=== PATIENT | female | born 1985 | race Caucasian/White ===

== ENCOUNTER 2023-01-15 14:15 | Emergency (ER) | payer OTHER, SELFPAY ==
[2023-01-15 14:32] VITALS: BP 135/68; PULSE 101; RESP 18; TEMP 37.7; O2SAT 98
--- NOTE | 2023-01-15 14:39 | ED.URI ---
HPI - URI/Sore Throat General Chief Complaint: Upper Respiratory Infection Stated Complaint: strep exposure, throat sore Time Seen by Provider: 01/15/23 14:48 Source: patient and RN notes reviewed Mode of arrival: ambulatory Limitations: no limitations History of Present Illness HPI Narrative: 29-year-old female presents concern for sore throat, nasal congestion, fever, watery eyes, cough, body aches. Reports exposure to strep. Reports her symptoms started yesterday MD elicited complaint: sore throat Related Data Home Medications Medication Instructions Recorded Confirmed levonorgestrel 21 mcg/24 hours (8 1 device intrauterine ONCE 01/15/23 01/15/23 yrs) 52 mg intrauterine device (Mirena) Allergies Allergy/AdvReac Type Severity Reaction Status Date / Time No Known Allergies Verified 01/15/23 14:36 Review of Systems Review of Systems: CONSTITUTIONAL: Reports malaise, chills, sweats, or fever. EYES: Denies visual changes, redness, or discharge. ENT: Reports rhinorrhea, congestion, and sore throat. CARDIOVASCULAR: Denies chest pain, palpitations, or edema. RESPIRATORY: Reports cough. Denies dyspnea. GASTROINTESTINAL: Denies abdominal pain, nausea, vomiting, diarrhea SKIN: Denies rash or itching. MUSCULOSKELETAL: Reports myalgia. NEUROLOGIC: Denies headache. All systems reviewed & are unremarkable except as noted in HPI and below PMFSH Comments At time of signature, agree with nursing past medical, surgical, social and family history. There is no relevant family history pertinent to the presenting complaint Exam Narrative: GENERAL: Well-appearing, well-nourished, and in no acute distress. HEAD: Normocephalic EYES: PERRLA, conjunctivae clear ENT: Nares clear, turbinates edematous and erythematous, clear discharge. Mucous membranes moist. TM pearly yañez with dull light reflex bilaterally; no tragal tenderness. Oropharynx erythematous without lesions. Tonsils not enlarged and without exudate, no drooling, no hoarseness, no trismus, uvula midline. NECK: Supple. No lymphadenopathy CHEST: Clear to auscultation, breath sounds equal. No wheezing, rhonchi, rales, or stridor. No respiratory distress, speaks in full sentences. HEART: Regular rate and rhythm. No murmur heard. SKIN: Warm, dry, no rash. NEURO: Alert and oriented x3. PSYCH: Normal mood and affect Course Course Emergency Course: Patient is aware of diagnosis, understands and agrees to treatment plan. Anticipatory guidance given. Patient agrees to follow-up as directed and is aware of reasons to seek care at the emergency department. Portions of this record may have been created with voice recognition software Level of Care: Express Care Visit Vital Signs Vital signs: Vital Signs Temperature 99.9 F H 01/15/23 14:32 Pulse Rate 101 H 01/15/23 14:32 Respiratory Rate 18 01/15/23 14:32 Blood Pressure 135/68 01/15/23 14:32 Pulse Oximetry 98 01/15/23 14:32 Oxygen Delivery Room Air 01/15/23 14:32 Temperature 99.9 F H 01/15/23 14:32 Pulse Rate 101 H 01/15/23 14:32 Respiratory Rate 18 01/15/23 14:32 Blood Pressure 135/68 01/15/23 14:32 Pulse Oximetry 98 01/15/23 14:32 Oxygen Delivery Room Air 01/15/23 14:32 Reviewed. MDM - URI/Sore Throat MDM Narrative Medical decision making narrative: Differential diagnosis considered: Christensen virus, strep pharyngitis, allergic rhinitis, upper respiratory tract infection, sinusitis, rhinosinusitis, nasopharyngitis. viral pharyngitis, otitis media, otitis externa, pneumonia, bronchitis, viral cough syndrome, viral syndrome, and influenza. Exam findings show no acute concerns or changes; patient is non-toxic appearing and is in no distress. Patient is appropriate for outpatient treatment and follow-up. Lab Data Attestation: I reviewed the patient's lab results. Critical Care Time Critical Care Time Critical Care Time: No Discharge Plan Discharge Clinical Impr
== END 2023-01-15 15:04 | disposition home or self-care (01) ==
PROVIDERS: Emergency Provider Nurse Practitioner
DX: J02.0 Streptococcal pharyngitis (principal)
CPT/HCPCS: 87880; 99213; G0463

== ENCOUNTER 2024-03-30 14:39 | Emergency (ER) | payer OTHER, SELFPAY ==
[2024-03-30 14:50] VITALS: BP 133/65; PULSE 99; RESP 16; TEMP 37.7; O2SAT 100
--- NOTE | 2024-03-30 16:03 | ED_ITS ---
HPI - URI/Sore Throat General Chief Complaint: Upper Respiratory Infection Stated Complaint: Cough/Sinus Time Seen by Provider: 03/30/24 16:03 Source: patient, RN notes reviewed and old records reviewed Mode of arrival: ambulatory Limitations: no limitations History of Present Illness HPI Narrative: 39-year-old female presents to the [facility] with sinus cough, congestion, runny nose since Saturday. Denies symptoms. Denies any treatments Related Data Home Medications ?Medication ?Instructions ?Recorded ?Confirmed ?Last Taken ?Type levonorgestrel (Mirena) 1 device intrauterine ONCE 01/15/23 01/15/23 Unknown History Allergies Allergy/AdvReac Type Severity Reaction Status Date / Time No Known Allergies Verified 01/15/23 14:36 Review of Systems Review of Systems: All systems reviewed & are unremarkable except as noted in HPI and below Constitutional: Constitutional: Reports no additional constitutional complaints ENT: Reports as per HPI Cardiovascular: Cardiovascular: Reports no additional cardiovascular complaints, Denies chest pain and Denies dyspnea Respiratory: Respiratory: Reports as per HPI, Denies chest congestion, Reports cough and Denies dyspnea Musculoskeletal: Musculoskeletal: Reports no additional musculoskeletal complaints Integumentary/Breasts: Skin/Breast: Reports system reviewed and no additional complaints, except as docu PMFSH Comments At the time of my signature, I reviewed and agree with the nursing past medical, surgical, social, and family history. There is no relevant family history pertinent to the patient complaint. Exam Const: General: cooperative, no acute distress, well developed, alert, tired appearing, uncomfortable and well nourished Nutritional Appearance: well nourished Orientation/consciousness: patient oriented x3 Limitations: no limitations HENMT: Head: normal to inspection Ears: hearing grossly normal bilaterally, external ears normal, TM's normal bilaterally, EAC's normal, mastoids normal and no periauricular adenopathy Mouth: Yes Normal oral and palatal mucosa present, Yes lip normal, Yes tongue normal and Yes moist mucous membranes Throat: posterior oropharynx normal, uvula midline and no uvular edema Eyes: General: appearance normal, both eyes and all related structures Alignment and Position: alignment normal Neck: Neck: normal visual inspection, full ROM, no lymphadenopathy and no meningeal signs Chest: Chest palpation & inspection: normal inspection of the chest Resp: Effort & Inspection: normal respiratory effort and able to speak in complete sentences Auscultation: clear to auscultation bilaterally, no crackles, no rales, no rhonchi and no wheezes Cardio: Rate: regular rate Skin: General skin exam: normal color and no rashes or lesions noted Neuro: General: patient oriented x3, gait normal, moves all extremities and no meningeal signs Cognition (Neuro): normal cognition Speech: normal speech Gait exam (Neuro): Normal gait present Extrem: General: normal to inspection, full ROM, capillary refill normal and normal gait Psych: Appearance: grossly normal and well kempt Mental Status: mental status grossly normal Speech and movement: Normal speech and movement present and Clear speech present Affect: normal affect Attitude: cooperative Course Course Level of Care: Express Care Visit Vital Signs Vital signs: Vital Signs Temperature 99.9 F H 03/30/24 14:50 Pulse Rate 99 03/30/24 14:50 Respiratory Rate 16 03/30/24 14:50 Blood Pressure 133/65 03/30/24 14:50 Pulse Oximetry 100 03/30/24 14:50 Oxygen Delivery Room Air 03/30/24 14:50 Temperature 99.9 F H 03/30/24 14:50 Pulse Rate 99 03/30/24 14:50 Respiratory Rate 16 03/30/24 14:50 Blood Pressure 133/65 03/30/24 14:50 Pulse Oximetry 100 03/30/24 14:50 Oxygen Delivery Room Air 03/30/24 14:50 Reviewed MDM - URI/Sore Throat MDM Narrative Medical decision making narrative: Patient sitting in exam room. Nontoxic vitals stable. Patient of distress. Patient presents with 3 day history of URI symptoms. Patient is flu A positive. Patient is appropriate for outpatient treatment with close follow-up Discharge instructions reviewed with patient, as well as provided in writing per nursing staff. The instructions also include specific and strict return/GO TO THE ER as well as f/u information. All questions have been answered, and the patient deny any further questions with discharge and discharge plan. Some parts of this dictation were generated by voice recognition software and may contain typographical and/or grammatical inaccuracies. Differential Diagnosis Differential diagnosis: Likely upper respiratory infection, otitis media, sinusitis, viral infection, bronchitis and influenza Lab Data Labs: Lab Results 03/30/24 Range/Units 16:15 POC Influenza A Ag Positive (Negative) POC Influenza B Ag Negative (Negative) POC SARS CoV-2 Ag Negative (Negative) Reviewed Critical Care Time Critical Care Time Critical Care Time: No Discharge Plan Discharge Clinical Impression: Influenza A Patient Disposition: Home, Self-Care Condition: Stable Instructions: Antibiotic Form, Influenza (ED) Additional Instructions: Your rapid COVID test were negative Your rapid flu test was positive for influenza A Your symptoms are due to a viral illness, which is not treated with antibiotics. Typically viral infections last 7-10 days, can linger for couple of weeks. It is very important to treat your symptoms. Drink plenty of water, Gatorade, Pedialyte, ice pops or Jell-O. -Alternate Tylenol and Motrin per package directions for fever or pain. You can alternate every 4 hours -Antihistamine medication such as Zyrtec/Claritin/Aster during the day can help improve symptoms. -doing daily nasal irrigations can help relieve pressure your sinuses. Things like a Neti pot -Use Flonase twice a day for 5 days then daily to help reduce the inflammation and dry up your sinuses. -You can also use Mucinex. Be sure to drink plenty of water with this medication at least 8 ounces with every dose and it is important to drink 8 to 10 glasses of water per day. Water is a natural decongestant -Eat and drink things that are easy to swallow, like tea or soup, or popsicles. -Oral rinses such as: Salt water gargles and/or may use topical anesthetic (eg. Chloraseptic spray) or lozenges to relieve dryness or throat pain). -Frequent hand washing or hand loader operator is one of the best ways to prevent spread of infection. -Using a vaporizer or humidifier at night will also help thin secretions and help with coughing up phlegm. -Follow up with primary care provider in 7-10 days if condition is not improving - For new or worsening symptoms go directly to the nearest ER Patient Language: Cuban Prescriptions: No Action Mirena 21 mcg/24 hours (8 yrs) 52 mg Intrauterine Device 1 device INTRAUTERINE ONCE Rx Instructions: as a single dose penicillin V potassium 500 mg tablet 500 mg PO Q12H 10 Days Qty: 20 0RF Follow-up/Referrals: PHYSICIAN,USER EXPERIENCE ANALYST [Primary Care Provider] - Stand Alone Forms: Work/School Release IP Time of Disposition: 16:07
[2024-03-30 16:16] LABS: EDINFLUASCREEN Positive (Negative); EDINFLUBSCREEN Negative (Negative)
[2024-03-30 16:21] LABS: EDCOVIDSCREEN Negative (Negative)
== END 2024-03-30 16:24 | disposition home or self-care (01) ==
PROVIDERS: Emergency Provider Nurse Practitioner
DX: J10.1 Influenza due to other identified influenza virus with other respiratory manifestations (principal); Z20.822 Contact with and (suspected) exposure to COVID-19
CPT/HCPCS: 87426; 87804; 99212; G0463

== ENCOUNTER 2024-09-10 14:38 | Emergency (ER) | payer OTHER, SELFPAY ==
--- NOTE | ~2024-09-10 | US_ITS ---
EXAMINATION: US venous doppler [facility] DATE: 09/10/2024 16:12 INDICATION: Swelling TECHNIQUE: Grayscale ultrasound images without and with compression and Doppler ultrasound images of the left lower extremity veins were obtained. COMPARISON: None. FINDINGS: The visualized portions of left common femoral vein, profunda (deep) femoral vein, femoral vein, popl iteal vein, peroneal veins, posterior tibial veins, and greater saphenous vein outflow are patent. IMPRESSION: 1. No deep venous thrombosis within the left lower extremity, as detailed above. Reviewed, dictated and finalized at location A. IMPRESSION: 1. No deep venous thrombosis within the left lower extremity, as detailed delilah erazo
[2024-09-10 14:46] VITALS: BP 152/91; PULSE 106; RESP 20; TEMP 36.6; O2SAT 99
--- NOTE | 2024-09-10 15:33 | ED_ITS ---
HPI - Extremity Injury (Lower) General Chief Complaint: Extremity Injury, Lower <Tami Hodges PA-C - Last Filed: 09/10/24 18:55> Stated Complaint: Left lower leg warm-poss DVT <Tami Hodges PA-C - Last Filed: 09/10/24 18:55> Time Seen by Provider: 09/10/24 15:33 <Tami Hodges PA-C - Last Filed: 09/10/24 18:55> Focused HPI: This is a 39 year old female that presents to the ER for an US to r/o DVT. Reports driving home from [place] last Saturday. Reports left leg pain, swelling. She had a telehealth visit and was told to come to the ER to r/o DVT. No history of DVT. She is a smoker. GENERAL: Well-appearing, well-nourished, and in no acute distress. HEAD: Normocephalic, atraumatic. CHEST: Clear to auscultation. ?No respiratory distress. HEART: Regular rate and rhythm.? NEURO: ?Alert and oriented x3. Patient screened in triage and initial orders placed.? ?Additional care and disposition to be based upon?diagnostic testing and treatment. <Tami Hodges PA-C - Last Filed: 09/10/24 18:55> History of Present Illness HPI Narrative: Agree with the above HPI. Patient states she drove 18 hours from [place] on Saturday and that they noticed a bruise to the back of her left calf and some swelling to the ankle. She had a telehealth appointment today was advised to come to the ER for ultrasound to rule out a DVT. She denies known injury or trauma but does states she has an autistic son who may have caused a bruise. No history of DVT. States the swelling has resolved. <Stacy Rosales PA-C - Last Filed: 09/10/24 18:21> Related Data Home Medications: Home Medications ?Medication ?Instructions ?Recorded ?Confirmed ?Last Taken ?Type levonorgestrel (Mirena) 1 device intrauterine ONCE 01/15/23 01/15/23 Unknown History <Tami Hodges PA-C - Last Filed: 09/10/24 18:55> Allergies/Adverse Reactions: Allergies Allergy/AdvReac Type Severity Reaction Status Date / Time No Known Allergies Allergy Verified 09/10/24 14:41 <Tami Hodges PA-C - Last Filed: 09/10/24 18:55> Review of Systems Review of Systems: All systems reviewed & are unremarkable except as noted in HPI and below <Stacy Rosales PA-C - Last Filed: 09/10/24 18:21> Exam Narrative: GENERAL: Well-appearing, well-nourished, and in no acute distress. HEAD: Normocephalic, atraumatic. EYES: EOMI. ENT: Nares clear, no rhinorrhea or epistaxis. Mucous membranes moist. NECK: Supple. CHEST: Clear to auscultation. No respiratory distress. HEART: Regular rate and rhythm. No murmur heard. Normal peripheral pulses. EXTREMITIES: Small bruise the back of the left calf with minimal tenderness, no edema to the lower extremity, negative Homans. Extremities pink, warm and dry. DP pulses 2+. SKIN: Warm, dry, no rash. NEURO: No focal deficits. Alert and oriented x3 <JAVIER Connors Last Filed: 09/10/24 18:21> Course Vital Signs Vital signs: Vital Signs Temperature 98 F 09/10/24 14:46 Pulse Rate 106 H 09/10/24 14:46 Respiratory Rate 09/10/24 14:46 Blood Pressure 152/91 H 09/10/24 14:46 Pulse Oximetry 99 09/10/24 14:46 Oxygen Delivery Room Air 09/10/24 14:46 Temperature 98 F 09/10/24 14:46 Pulse Rate 81 09/10/24 17:58 Respiratory Rate 09/10/24 17:58 Blood Pressure 137/86 09/10/24 17:58 Pulse Oximetry 99 09/10/24 17:58 Oxygen Delivery Room Air 09/10/24 14:46 <Tami Hodges PA-C - Last Filed: 09/10/24 18:55> Vital Signs Temperature 98 F 09/10/24 14:46 Pulse Rate 106 H 09/10/24 14:46 Respiratory Rate 20 09/10/24 14:46 Blood Pressure 152/91 H 09/10/24 14:46 Pulse Oximetry 99 09/10/24 14:46 Oxygen Delivery Room Air 09/10/24 14:46 Temperature 98 F 09/10/24 14:46 Pulse Rate 81 09/10/24 17:58 Respiratory Rate 20 09/10/24 17:58 Blood Pressure 137/86 09/10/24 17:58 Pulse Oximetry 99 09/10/24 17:58 Oxygen Delivery Room Air 09/10/24 14:46 <JAVIER Connors Last Filed: 09/10/24 18:21> MDM - Extremity Injury (Lower) MDM Narrative Medical decision making narrative: 39-year-old female presents emergency department to rule out a DVT. Patient recently had a long [address] from [place] and noticed a bruise, calf pain and swelling to her leg afterwards. She states the swelling has since resolved. Had a telehealth appointment today and was advised to come to the ED to rule out a DVT. Triage vitals with blood pressure 152/91 mild tachycardia 106 which has since resolved. Patient is afebrile and nontoxic appearing and resting comfortably in exam bed. Exam notable for small bruise to the left posterior calf, negative Homans sign, no significant edema to the lower extremity, she is neurovascularly intact. Lower extremity venous duplex shows no evidence of DVT. Patient was updated on results and reports relief. Advised Tylenol/ibuprofen p.r.n. follow-up with PCP. Discussed strict ED return precautions. She is agreeable with the plan verbalized understanding. Discharged in stable condition. <JAVIER Connors Last Filed: 09/10/24 18:21> Imaging Data Radiologist's impression: ITS Impressions Venous Doppler Study 09/10/24 16:27 IMPRESSION: 1. No deep venous thrombosis within the left lower extremity, as detailed above. <Tami Hodges PA-C - Last Filed: 09/10/24 18:55> Critical Care Time Critical Care Time Critical Care Time: No <JAVIER Golden Last Filed: 09/10/24 18:55> Discharge Plan Discharge Clinical Impression: Calf pain Qualifiers: Laterality: left Qualified Code(s): M79.662 - Pain in left lower leg <JAVIER Golden Last Filed: 09/10/24 18:55> Patient Disposition: Home <JAVIER Golden Last Filed: 09/10/24 18:55> Condition: Stable <JAVIER Golden Last Filed: 09/10/24 18:55> Instructions: Antibiotic Form, Contusion in Adults (ED) <JAVIER Golden Last Filed: 09/10/24 18:55> Additional Instructions: The ultrasound shows no evidence of a DVT. Please take Tylenol ibuprofen as needed for pain. Follow-up with her primary care provider. Return to the emergency department if you develop worsening pain, swelling, chest pain or shortness of breath, or other concerning symptoms. <JAVIER Golden Last Filed: 09/10/24 18:55> Patient Language: Yoruba <JAVIER Golden Last Filed: 09/10/24 18:55> Prescriptions: No Action Mirena 21 mcg/24 hours (8 yrs) 52 mg Intrauterine Device 1 device INTRAUTERINE ONCE Rx Instructions: as a single dose penicillin V potassium 500 mg tablet 500 mg PO Q12H 10 Days Qty: 20 0RF <JAVIER Golden Last Filed: 09/10/24 18:55> Follow-up/Referrals: PHYSICIAN,BENCH BORING MACHINE OPERATOR [Primary Care Provider] - <JAVIER Golden Last Filed: 09/10/24 18:55>
[2024-09-10 17:58] VITALS: BP 137/86; PULSE 81; RESP 20; O2SAT 99
== END 2024-09-10 18:40 | disposition home or self-care (01) ==
LOC: ANHED 18:34
PROVIDERS: Emergency Provider Physician Assistant
DX: M79.662 Pain in left lower leg (principal)
CPT/HCPCS: 93971; 99284